=== PATIENT | male | born 1960 | race Caucasian/White ===

== ENCOUNTER 2020-03-02 11:54 | Emergency (ER) | payer SELFPAY ==
[2020-03-02 12:23] VITALS: BP 160/108
[2020-03-02] MEDS ORDERED: KETOROLAC TROMETHAMINE 0.45% 4 DROP/0.4 ML DROPERETTE OU ONE (12:55)
[2020-03-02 13:22] LABS: ABSOLUTE BASOPHILS # (AUTO) 0.1 10^3/uL (0.0-0.2); ABSOLUTE EOSINOPHILS # (AUTO) 0.1 10^3/uL (0.0-0.6); ABSOLUTE LYMPHOCYTES (AUTO) 1.8 10^3/uL (0.5-4.7); ABSOLUTE MONOCYTES (AUTO) 0.6 10^3/uL (0.1-1.4); ABSOLUTE NEUT (AUTO) 4.7 10^3/uL (1.7-8.2); BASOPHILS % (AUTO) 1.2 % (0-2); EOSINOPHILS % (AUTO) 1.9 % (0-6); HEMATOCRIT 43.8 % (37.9-51.0); HEMOGLOBIN 15.3 g/dL (13.5-17.0); LYMPHOCYTES % (AUTO) 24.8 % (13-45); MEAN CORPUSCULAR HEMOGLOBIN 32.3 pg (27.0-33.4); MEAN CORPUSCULAR HGB CONC 35.1 g/dL (32.0-36.0); MEAN CORPUSCULAR VOLUME 92 fl (80-97); MONOCYTES % (AUTO) 7.9 % (3-13); PLATELET COUNT 319 10^3/uL (150-450); RED BLOOD COUNT 4.75 10^6/uL (4.35-5.55); RED CELL DISTRIBUTION WIDTH 13.3 % (11.5-14.0); SEGMENTED NEUTROPHILS % (AUTO) 64.2 % (42-78); TOTAL CELLS COUNTED % (AUTO) 100 %; WHITE BLOOD COUNT 7.3 10^3/uL (4.0-10.5)
[2020-03-02 13:39] LABS: ALBUMIN 4.8 g/dL (3.5-5.0); ALKALINE PHOSPHATASE 62 U/L (38-126); ANION GAP 7 (5-19); ASPARTATE AMINO TRANSFERASE 22 U/L (17-59); BILIRUBIN,TOTAL 0.6 mg/dL (0.2-1.3); BLOOD UREA NITROGEN 19 mg/dL (7-20); CALCIUM 9.8 mg/dL (8.4-10.2); CARBON DIOXIDE 28 mmol/L (22-30); CHLORIDE 101 mmol/L (98-107); CREATINE KINASE 193 U/L (55-170); GLUCOSE 97 mg/dL (75-110)
--- NOTE | 2020-03-02 18:51 | ER Document Report ---
Entered by ALTHEA MANN SCRIBE 03/02/20 1323 Acting as scribe for:ADITYA PEÑA MD ED General - General Chief Complaint: Headache Stated Complaint: HEADACHE,SORE THROAT Time Seen by Provider: 03/02/20 12:26 Mode of Arrival: Ambulatory Information source: Patient Notes: This 59 year old male patient presents to the emergency department today with complaints of mold exposure today at work. Patient states that he "comes into contact with mold all the time" and that he rarely wears a mask. Patient complains of eye irritation, a scratchy throat, and he is profoundly hypertensive here with an initial pressure of 215/112. Patient is on lisinopril 20mg BID and he mentions that he was "told it may not control his blood pressure". Patient states that she is followed by [facility] (Dr. Galvan) and he has tried to get in to see them about his elevated pressures but he "can't get in because of COVID". Patient then later states that he doesn't really want to be COVID tested and he also is "not sure that Dr. Galvan would want him on any more HTN medications". Patient's speech is very tangential and it is difficult to redirect him. He states this is normal when he does not take his adderall. - Related Data Allergies/Adverse Reactions: No Known Allergies Allergy (Verified 03/02/20 13:07) Past Medical History - General Information source: Patient - Social History Smoking Status: Never Smoker Cigarette use (# per day): No Frequency of alcohol use: None Drug Abuse: None Lives with: Family Family History: Reviewed & Not Pertinent Malignancy Medical History: Reports Hx Prostate Cancer Past Surgical History: Reports: Hx Orthopedic Surgery - Right wrist ORIF, Other - Prostatectomy Review of Systems - Review of Systems Constitutional: No symptoms reported EENT: See HPI, Eye pain, Throat pain - "scratchy throat" Cardiovascular: See HPI, Other - hypertensive Respiratory: No symptoms reported Gastrointestinal: No symptoms reported Genitourinary: No symptoms reported Male Genitourinary: No symptoms reported Musculoskeletal: No symptoms reported Skin: No symptoms reported Hematologic/Lymphatic: No symptoms reported Neurological/Psychological: No symptoms reported -: Yes All other systems reviewed and negative Physical Exam - Vital signs Vitals: Temp Pulse Resp BP Pulse Ox 98.0 F 73 16 160/108 H 99 07/29/20 12:12 03/02/20 12:12 03/02/20 12:12 03/02/20 12:12 03/02/20 12:12 Interpretation: Hypertensive - Notes Notes: Physical Exam: General: Alert, appears well. HEENT: Normocephalic. Atraumatic. PERRL. Extraocular movements intact. Oropharynx clear. Right lateral scleral injection. Neck: Supple. Non-tender. Respiratory: No respiratory distress. Clear and equal breath sounds bilaterally. Cardiovascular: Regular rate and rhythm. Abdominal: Normal Inspection. Non-tender. No distension. Normal Bowel Sounds. Back: No gross abnormalities. Extremities: Moves all four extremities. Upper extremities: Normal inspection. Normal ROM. Lower extremities: Normal inspection. No edema. Normal ROM. Neurological: Normal cognition. AAOx4. Normal speech. Psychological: Normal affect. Normal Mood. Skin: Warm. Dry. Normal color. Course - Re-evaluation Re-evalutation: 03/02/20 13:46 The patient was evaluated during the global COVID-19 pandemic and that diagnosis was suspected/considered upon their initial presentation. Their evaluation, treatment and testing was consistent with current guidelines for patients who present with complaints or symptoms that may be related to COVID-19. The patient refused COVID testing, then refused all treatment and left AMA. He was upset because he had an [employer] form from his boss that he wanted filled out. The nurse had informed him that he would need to see his primary care provider for that, he got upset stated he would get an appointment with his PCP and left AMA. - Vital Signs Vital signs: Temp Pulse Resp BP Pulse Ox 98.0 F 73 16 160/108 H 99 03/02/20 12:12 03/02/20 12:12 03/02/20 12:12 03/02/20 12:12 03/02/20 12:12 - Laboratory Result Diagrams: 03/02/20 12:59 03/02/20 12:59 Laboratory results interpreted by me: 03/02/20 12:59 Sodium 136.3 L Creatine Kinase 193 H Discharge - Discharge Clinical Impression: Exposure to mold Headache Qualifiers: Headache type: unspecified Headache chronicity pattern: acute headache Intractability: not intractable Qualified Code(s): R51 - Headache High blood pressure Qualifiers: Hypertension type: essential hypertension Qualified Code(s): I10 - Essential (primary) hypertension Disposition: AGAINST MEDICAL ADVICE I personally performed the services described in the documentation, reviewed and edited the documentation which was dictated to the scribe in my presence, and it accurately records my words and actions.
== END 2020-03-02 13:29 | disposition left against medical advice (07) ==
LOC: ER 11:54
DX: R51 Headache (principal); J02.9 Acute pharyngitis, unspecified; H57.10 Ocular pain, unspecified eye; I10 Essential (primary) hypertension; Z79.899 Other long term (current) drug therapy; Z77.120 Contact with and (suspected) exposure to mold (toxic); Z85.46 Personal history of malignant neoplasm of prostate; Z20.828 Contact with and (suspected) exposure to other viral communicable diseases; Z53.29 Procedure and treatment not carried out because of patient's decision for other reasons
CPT/HCPCS: 36415; 80053; 82550; 84484; 85025; 99284